=== PATIENT | female | born 1960 | race Caucasian/White ===

== ENCOUNTER 2021-07-01 06:35 | Day surgery (SDC) | payer OTHER ==
[~2021-07-01] VITALS: Ht 160 cm; Wt 88.0 kg
[2021-07-01] MEDS ORDERED: MIDAZOLAM 5 MG/5 ML VIAL ONE (08:04)
[2021-07-01] MEDS ORDERED: fentaNYL citrate 0.05 MG/ML VIAL ONE (08:07)
== END 2021-07-01 10:15 | disposition home or self-care (01) ==
LOC: MDS 06:35 → MMU 06:36 → MDS 10:15
PROVIDERS: ATTEND Internal Medicine Gastroenterology
DX: Z12.11 Encounter for screening for malignant neoplasm of colon (principal); K21.9 Gastro-esophageal reflux disease without esophagitis; E78.00 Pure hypercholesterolemia, unspecified; Z90.710 Acquired absence of both cervix and uterus; Z90.49 Acquired absence of other specified parts of digestive tract; Z20.822 Contact with and (suspected) exposure to COVID-19
CPT/HCPCS: 36415; 43239; 45378; 86677; 87426; J2250; J3010; J7030